=== PATIENT | female | born 1995 | race Caucasian/White ===

== ENCOUNTER 2016-07-13 20:53 | Emergency (ER) | payer MEDICAID ==
[2016-07-13 21:28] VITALS: BMI 24.7
[2016-07-13 21:31] VITALS: BP 119/68; PULSE 69; RESP 16; TEMP 97.9; O2SAT 100
[2016-07-13] MEDS ORDERED: Alum-Mag Hydrox-Simethicone Susp (30 mL) ONE (21:42)
[2016-07-13] MEDS ORDERED: Alum-Mag Hydrox-Simethicone Susp (30 mL) PO STA (21:44)
[2016-07-13 22:29] LABS: RBC URINE 3 /hpf (0-3); URINE BACTERIA OCC (<OCC); URINE BILIRUBIN NEGATIVE (NEGATIVE); URINE BLOOD SMALL (NEGATIVE); URINE COLOR AMBER (YELLOW); URINE GLUCOSE (UA) NEG (Normal); URINE KETONE NEGATIVE (NEGATIVE); URINE LEUKOCYTE ESTERASE SMALL Leu/uL (Negative); URINE PROTEIN 30 mg/dL (NEGATIVE); URINE UROBILINOGEN 0.2-1.0 mg/dL (0.2-1.0); WBC URINE 10 /hpf (0-5)
--- NOTE | 2016-07-13 22:35 | ED PDOC ---
HPI: Abdomen Time Seen by Provider: 07/13/16 21:34 Chief Complaint (Nursing): Abdominal Pain History Per: Patient History/Exam Limitations: no limitations Onset/Duration Of Symptoms: Days Location Of Pain/Discomfort: Epigastric Additional Complaint(s): hx of "ulcers" c/o of epigastric pain x 4 days, states worse when eating, states she doesn't feel like eating b/c of it, also w/ vomiting and one episode of diarrhea. No fevers. STopped taking medications when she ran out months prior. No fevers/chills. No abdominal surgeries. No urinary symptoms. Past Medical History Vital Signs: Last Vital Signs Temp 97.9 F 07/13/16 21:28 Pulse 69 07/13/16 21:28 Resp 16 07/13/16 21:28 BP 119/68 07/13/16 21:28 Pulse Ox 100 07/13/16 21:28 - Medical History PMH: Anxiety, Chronic Kidney Disease (hx of kidney infections) Denies: Diabetes, Hepatitis, HIV, HTN, Seizures, Sexually Transmitted Disease - Family History Family History: States: Unknown Family Hx - Immunization History Hx Tetanus Toxoid Vaccination: No Hx Influenza Vaccination: No Hx Pneumococcal Vaccination: No - Home Medications Home Medications: Ambulatory Orders Medication Instructions Recorded Huntley Carbonate ER Tab [Huntley 450 mg PO Q12 #0 tab 12/30/14 Carbonate] traZODone [Desyrel] 50 mg PO HS #0 tab 12/30/14 Famotidine [Pepcid] 20 mg PO BID #30 tab 07/13/16 Omeprazole 20 mg PO DAILY #30 capsule. 07/13/16 - Allergies Allergies/Adverse Reactions: Allergies Allergy/AdvReac Type Severity Reaction Status Date / Time No Known Allergies Allergy Verified 07/13/16 21:28 Review of Systems ROS Statement: Except As Marked, All Systems Reviewed And Found Negative Gastrointestinal: Positive for: Vomiting, Abdominal Pain Physical Exam - Reviewed Nursing Documentation Reviewed: Yes - Physical Exam Appears: Positive for: Well, Non-toxic, No Acute Distress Head Exam: Positive for: ATRAUMATIC, NORMAL INSPECTION, NORMOCEPHALIC Skin: Positive for: Normal Color, Warm, DRY Eye Exam: Positive for: EOMI, Normal appearance, PERRL ENT: Positive for: Normal ENT Inspection Neck: Positive for: Normal, Painless ROM Cardiovascular/Chest: Positive for: Regular Rate, Rhythm Respiratory: Positive for: CNT, Normal Breath Sounds Gastrointestinal/Abdominal: Positive for: Normal Exam, Bowel Sounds, Soft Back: Positive for: Normal Inspection Extremity: Positive for: Normal ROM Neurologic/Psych: Positive for: Alert, Oriented - ECG O2 Sat by Pulse Oximetry: 100 Pulse Ox Interpretation: Normal Medical Decision Making Medical Decision Making: Well appearing F c/o of epigastric pain. Was given GI cocktail with resolutoin of symptoms. Return precautions were given to patient and f/u given to patient. Disposition - Clinical Impression Clinical Impression: Gastritis - Disposition Referrals: [facility] [Outside] Disposition Time: 22:35 Condition: STABLE Prescriptions: Famotidine [Pepcid] 20 mg PO BID #30 tab Omeprazole 20 mg PO DAILY #30 capsule.dr Instructions: Diet for Ulcers and Gastritis (ED), Gastritis (DC)
== END 2016-07-13 22:35 | disposition home or self-care (01) ==
LOC: H.ER 20:53
DX: K29.70 Gastritis, unspecified, without bleeding (principal); R11.10 Vomiting, unspecified; F41.9 Anxiety disorder, unspecified; N18.9 Chronic kidney disease, unspecified

== ENCOUNTER 2016-11-07 18:07 | Emergency (ER) | payer MEDICAID, OTHER ==
[2016-11-07 18:08] VITALS: BMI 24.7
[2016-11-07 18:16] VITALS: BP 144/77; PULSE 66; RESP 18; TEMP 98.7; O2SAT 100
--- NOTE | 2016-11-07 18:31 | ED PDOC ---
HPI: Female Pain Time Seen by Provider: 11/07/16 18:24 Chief Complaint (Nursing): Female Genitourinary Past Medical History Vital Signs: Last Vital Signs Temp 98.7 F 11/07/16 18:12 Pulse 66 11/07/16 18:12 Resp 18 11/07/16 18:12 BP 144/77 11/07/16 18:12 Pulse Ox 100 11/07/16 18:12 - Medical History PMH: Anxiety, Bipolar Disorder, Chronic Kidney Disease (hx of kidney infections) Denies: Diabetes, Hepatitis, HIV, HTN, Seizures, Sexually Transmitted Disease - Immunization History Hx Tetanus Toxoid Vaccination: No Hx Influenza Vaccination: No Hx Pneumococcal Vaccination: No - Home Medications Home Medications: Ambulatory Orders Medication Instructions Recorded ALPRAZolam [Xanax] 0.25 mg PO Q6H PRN #3 tab 08/31/16 - Allergies Allergies/Adverse Reactions: Allergies Allergy/AdvReac Type Severity Reaction Status Date / Time No Known Allergies Allergy Verified 08/31/16 18:07 - ECG O2 Sat by Pulse Oximetry: 100 Disposition - Clinical Impression Clinical Impression: Genital warts - Patient ED Disposition Is Patient to be Admitted: No Counseled Patient/Family Regarding: Diagnosis, Need For Followup - Disposition [facility] Disposition: Routine/Home Disposition Time: 18:30 Condition: GOOD Additional Instructions: Please follow-up with BLEND TECHNICIAN. Instructions: Genital Warts (ED), HPV (Human Papillomavirus) (GEN) Forms: [employer] (Yakut)
== END 2016-11-07 18:30 | disposition home or self-care (01) ==
LOC: H.ER 18:07
DX: A63.0 Anogenital (venereal) warts (principal)

== ENCOUNTER 2016-11-29 16:33 | Emergency (ER) | payer OTHER ==
[2016-11-29 16:33] VITALS: BMI 24.7
[2016-11-29 16:51] VITALS: BP 128/80; PULSE 68; RESP 18; TEMP 98.4; O2SAT 100
--- NOTE | 2016-11-29 17:03 | ED PDOC ---
HPI: Skin/Bite Injury Time Seen by Provider: 11/29/16 17:01 Chief Complaint (Nursing): Abnormal Skin Integrity Chief Complaint (Provider): Rash History Per: Patient History/Exam Limitations: no limitations Onset/Duration Of Symptoms: Days (x 1) Current Symptoms Are (Timing): Still Present Location Of Injury: Right: Hand, Left: Hand Additional Complaint(s): Sirisha is a 21 y/o female who presents to the ED with a noted bilateral rash on her hands 1 day after dyeing her hair. Patient is concerned for scabies as she knew someone who had it 2 years ago, but denies contact with affected people recently. She currently lives alone with her daughter. PMD: None Provided Past Medical History Reviewed: Historical Data, Nursing Documentation, Vital Signs Vital Signs: Last Vital Signs Temp 98.4 F 11/29/16 16:49 Pulse 68 11/29/16 16:49 Resp 18 11/29/16 16:49 BP 128/80 11/29/16 16:49 Pulse Ox 100 12/08/16 17:30 - Medical History PMH: Anxiety, Bipolar Disorder, Chronic Kidney Disease (hx of kidney infections) Denies: Diabetes, Hepatitis, HIV, HTN, Seizures, Sexually Transmitted Disease - Family History Family History: States: No Known Family Hx - Living Arrangements Living Arrangements: Alone (with daughter) - Immunization History Hx Tetanus Toxoid Vaccination: No Hx Influenza Vaccination: No Hx Pneumococcal Vaccination: No - Home Medications Home Medications: Ambulatory Orders Medication Instructions Recorded ALPRAZolam [Xanax] 0.25 mg PO Q6H PRN #3 tab 08/31/16 predniSONE [predniSONE Tab] 2 tab PO DAILY #10 tab 11/29/16 - Allergies Allergies/Adverse Reactions: Allergies Allergy/AdvReac Type Severity Reaction Status Date / Time No Known Allergies Allergy Verified 08/31/16 18:07 Review of Systems ROS Statement: Except As Marked, All Systems Reviewed And Found Negative Skin: Positive for: Rash (b/l hands) Physical Exam - Reviewed Nursing Documentation Reviewed: Yes Vital Signs Reviewed: Yes - Physical Exam Appears: Positive for: Non-toxic, No Acute Distress Head Exam: Positive for: ATRAUMATIC, NORMAL INSPECTION, NORMOCEPHALIC Skin: Positive for: Rash (small papillar lesions on hands b/l. Nothing in web spaces) Respiratory: Positive for: Normal Breath Sounds. Negative for: Wheezing, Respiratory Distress Neurologic/Psych: Positive for: Alert, Oriented - ECG O2 Sat by Pulse Oximetry: 100 (RA) Pulse Ox Interpretation: Normal Disposition - Clinical Impression Clinical Impression: Contact dermatitis - Patient ED Disposition Is Patient to be Admitted: No - Disposition Disposition: Routine/Home Disposition Time: 17:15 Condition: FAIR Prescriptions: predniSONE [predniSONE Tab] 2 tab PO DAILY #10 tab Instructions: Contact Dermatitis (ED) Forms: [employer] (Malay)
== END 2016-11-29 17:19 | disposition home or self-care (01) ==
LOC: H.ER 16:33
DX: L25.9 Unspecified contact dermatitis, unspecified cause (principal)

== ENCOUNTER 2018-07-20 16:09 | Emergency (ER) | payer MEDICAID, OTHER ==
[2018-07-20 16:09] VITALS: BMI 24.7
[2018-07-20 16:47] VITALS: BP 124/79; PULSE 77; RESP 18; TEMP 99.1; O2SAT 100
--- NOTE | 2018-07-20 17:02 | ED PDOC ---
HPI: Eye Injury/Pain Time Seen by Provider: 07/20/18 16:54 Chief Complaint (Nursing): Eye Problem Chief Complaint (Provider): Eye Problem History Per: Patient History/Exam Limitations: no limitations Onset/Duration Of Symptoms: Days Additional Complaint(s): 22 year old female presents to ED with left eye redness x2 days. She reports a lot of crusting in her eye when she wakes up. Patient applied tea tree oil to eye which relieved pain but still has crusting and discharge. She uses contact lenses but denies trauma, fever, headache, pain. PMD: Alethea Cerna Past Medical History Reviewed: Historical Data, Nursing Documentation, Vital Signs Vital Signs: Last Vital Signs Temp 99.1 F 07/20/18 16:46 Pulse 77 07/20/18 16:46 Resp 18 07/20/18 16:46 BP 124/79 07/20/18 16:46 Pulse Ox 100 07/20/18 16:46 Primary Care Provider: FAMILY PROVIDER,NO - Medical History PMH: Anxiety, Bipolar Disorder, Chronic Kidney Disease (hx of kidney infections) Denies: Diabetes, Hepatitis, HIV, HTN, Seizures, Sexually Transmitted Disease - Surgical History Surgical History: No Surg Hx - Family History Family History: States: No Known Family Hx - Social History Current smoker - smoking cessation education provided: No Ex-Smoker (has not smoked in the last 12 months): Yes Alcohol: None Drugs: Denies - Immunization History Hx Tetanus Toxoid Vaccination: No Hx Influenza Vaccination: No Hx Pneumococcal Vaccination: No - Home Medications Home Medications: Ambulatory Orders Medication Instructions Recorded ALPRAZolam [Xanax] 0.25 mg PO Q6H PRN #3 tab 08/31/16 predniSONE [predniSONE Tab] 2 tab PO DAILY #10 tab 11/29/16 Ciprofloxacin 0.3% [Ciloxan 0.3% 1 - 2 drop LEFTEYE Q4H #1 bottle 07/20/18 Ophth SOLN] - Allergies Allergies/Adverse Reactions: Allergies Allergy/AdvReac Type Severity Reaction Status Date / Time No Known Allergies Allergy Verified 08/31/16 18:07 Review of Systems Constitutional: Negative for: Fever, Other (no trauma) Eyes: Positive for: Redness (left eye), Other (crusting and discharge). Negative for: Pain Neurological: Negative for: Headache Physical Exam - Physical Exam Eye Exam: Positive for: EOMI, PERRL, Other (yellow crusting in left eye). Negative for: Periorbital swelling, Periorbital tenderness, Conjunctival injection (none bilaterally) Neurological/Psych: Positive for: Alert, Oriented (x3) - ECG O2 Sat by Pulse Oximetry: 100 (RA) Pulse Ox Interpretation: Normal Medical Decision Making Medical Decision Making: Time: 1647 Initial Impression: Initial Plan: 1700 Patient medically stable and ready for discharge --------- -------- Scribe Attestation: Documented by Slava Reyes, acting as a scribe for Emanuel Luis PA-C Provider Scribe Attestation: All medical record entries made by the Scribe were at my direction and personally dictated by me. I have reviewed the chart and agree that the record accurately reflects my personal performance of the history, physical exam, medical decision making, and the department course for this patient. I have also personally directed, reviewed, and agree with the discharge instructions and disposition. Disposition - Clinical Impression Clinical Impression: Conjunctivitis - Patient ED Disposition Is Patient to be Admitted: No - Disposition Referrals: Luis Nye MD [Staff Provider] - Disposition: Routine/Home Disposition Time: 17:00 Condition: STABLE Additional Instructions: ALICIA VEGA, thank you for letting us take care of you today. Your provider was Modesta Briones MD and you were treated for EYE IRRITATION. The emergency medical care you received today was directed at your acute symptoms. If you were prescribed any medication, please fill it and take as directed. It may take several days for your symptoms to resolve. Return to the Emergency Department if your symptoms worsen, do not improve, or if you have any other problems. Please contact your doctor or call one of the physicians/clinics you have been referred to that are listed on the Patient Visit Information form that is included in your discharge packet. Bring any paperwork you were given at discharge with you along with any medications you are taking to your follow up visit. Our treatment cannot replace ongoing medical care by a primary care gisele fabian outside of the emergency department. Thank you for allowing the [facility] team to be part of your care today. Prescriptions: Ciprofloxacin 0.3% [Ciloxan 0.3% Ophth SOLN] 1 - 2 drop LEFTEYE Q4H #1 bottle Instructions: Conjunctivitis (Pinkeye) (DC) Forms: [employer] (Portuguese) Print Language: PORTUGUESE
== END 2018-07-20 17:43 | disposition home or self-care (01) ==
LOC: H.ER 16:09
DX: H10.9 Unspecified conjunctivitis (principal); N18.9 Chronic kidney disease, unspecified; Z87.891 Personal history of nicotine dependence; Z86.59 Personal history of other mental and behavioral disorders